=== PATIENT | male | born 1990 | race Caucasian/White ===

== ENCOUNTER 2018-12-27 17:20 | Inpatient (IN) | payer MEDICAID, OTHER ==
--- NOTE | 2018-12-27 18:14 | ED ---
Psych HPI - General Chief Complaint: Psychiatric Symptoms Stated Complaint: mental health Time Seen by Provider: 12/27/18 17:40 Source: patient, RN notes reviewed Mode of arrival: ambulatory - History of Present Illness Initial Comments: This is a 28 old male who presents with complaints of feeling depressed and suicidal. He states he isn't feeling depressed for quite a long time. No definite plan he states been having issues with his mother and he wanted her to find him. He also states she's been having some intermittent chest pains and cough he does admit to smoking is a meth user in the past. He denies any fevers chills sweats no history of asthma. He does state he was at [facility] recently had an x-ray done which apparently did not show very much. MD Complaint: suicidal ideation, feels depressed - Related Data Home Medications Medication Instructions Recorded Confirmed No Known Home Medications 12/27/18 12/27/18 Allergies Allergy/AdvReac Type Severity Reaction Status Date / Time No Known Allergies Allergy Verified 12/27/18 18:17 Review of Systems ROS Statement: Those systems with pertinent positive or pertinent negative responses have been documented in the HPI. ROS Other: All systems not noted in ROS Statement are negative. Past Medical History Past Medical History: No Reported History History of Any Multi-Drug Resistant Organisms: None Reported Past Surgical History: No Surgical Hx Reported Past Psychological History: Bipolar, Depression, Schizophrenia Smoking Status: Current every day smoker Past Alcohol Use History: None Reported Past Drug Use History: Methamphetamine General Exam - General Exam Comments Initial Comments: Is a well-developed well-nourished awake alert anxious appearing male Limitations: no limitations General appearance: alert, in no apparent distress Head exam: Present: atraumatic, normocephalic, normal inspection Eye exam: Present: normal appearance, PERRL, EOMI. Absent: scleral icterus, conjunctival injection, periorbital swelling ENT exam: Present: normal exam, mucous membranes moist Neck exam: Present: normal inspection, full ROM, other (No stridor JVD or bruits ). Absent: tenderness, meningismus, lymphadenopathy Respiratory exam: Present: decreased breath sounds. Absent: respiratory distress, wheezes, rales, rhonchi, stridor Cardiovascular Exam: Present: regular rate, normal rhythm, normal heart sounds. Absent: systolic murmur, diastolic murmur, rubs, gallop, clicks GI/Abdominal exam: Present: soft, normal bowel sounds. Absent: distended, tenderness, guarding, rebound, rigid Extremities exam: Present: normal inspection, full ROM, normal capillary refill. Absent: tenderness, pedal edema, joint swelling, calf tenderness Back exam: Present: normal inspection Neurological exam: Present: alert, oriented X3, CN II-XII intact Psychiatric exam: Present: depressed, anxious, flat affect, suicidal ideation Skin exam: Present: warm, dry, intact, normal color. Absent: rash Course Vital Signs 12/27/18 17:24 Temperature 97.9 F Pulse Rate 87 Respiratory 16 Rate Blood Pressure 131/74 O2 Sat by Pulse 100 Oximetry Medical Decision Making - Medical Decision Making The patient was evaluated by psychiatric services 5 years. He will be admitted for inpatient treatment - Lab Data Result diagrams: 12/27/18 18:18 12/27/18 18:18 Lab Results 12/27/18 12/27/18 12/27/18 Range/Units 17:40 18:18 18:18 WBC 8.0 (3.8-10.6) k/uL RBC 5.26 (4.30-5.90) m/uL Hgb 15.4 (13.0-17.5) gm/dL Hct 46.7 (39.0-53.0) % MCV 88.7 (80.0-100.0) fL MCH 29.3 (25.0-35.0) pg MCHC 33.0 (31.0-37.0) g/dL RDW 13.1 (11.5-15.5) % Plt Count 290 (150-450) k/uL Neutrophils % 65 % Lymphocytes % 23 % Monocytes % 6 % Eosinophils % 4 % Basophils % 1 % Neutrophils # 5.2 (1.3-7.7) k/uL Lymphocytes # 1.9 (1.0-4.8) k/uL Monocytes # 0.4 (0-1.0) k/uL Eosinophils # 0.3 (0-0.7) k/uL Basophils # 0.0 (0-0.2) k/uL Sodium (137-145) mmol/L Potassium (3.5-5.1) mmol/L Chloride (98-107) mmol/L Carbon Dioxide (22-30) mmol/L Anion Gap mmol/L BUN (9-20) mg/dL Creatinine (0.66-1.25) mg/dL Est GFR (CKD-EPI)AfAm (>60 ml/min/1.73 sqM) Est GFR (CKD-EPI)NonAf (>60 ml/min/1.73 sqM) Glucose (74-99) mg/dL Calcium (8.4-10.2) mg/dL Magnesium (1.6-2.3) mg/dL Total Bilirubin (0.2-1.3) mg/dL AST (17-59) U/L ALT (21-72) U/L Alkaline Phosphatase (38-126) U/L Total Creatine Kinase 241 H (55-170) U/L CK-MB (CK-2) 1.6 (0.0-2.4) ng/mL CK-MB (CK-2) Rel Index 0.7 Troponin I <0.012 (0.000-0.034) ng/mL Total Protein (6.3-8.2) g/dL Albumin (3.5-5.0) g/dL Urine Opiates Screen Not Detected (NotDetected) Ur Oxycodone Screen Not Detected (NotDetected) Urine Methadone Screen Not Detected (NotDetected) Ur Propoxyphene Screen Not Detected (NotDetected) Ur Barbiturates Screen Not Detected (NotDetected) U Tricyclic Antidepress Not Detected (NotDetected) Ur Phencyclidine Scrn Not Detected (NotDetected) Ur Amphetamines Screen Not Detected (NotDetected) U Methamphetamines Scrn Not Detected (NotDetected) U Benzodiazepines Scrn Not Detected (NotDetected) Urine Cocaine Screen Not Detected (NotDetected) U Marijuana (THC) Screen Not Detected (NotDetected) 12/27/18 Range/Units 18:18 WBC (3.8-10.6) k/uL RBC (4.30-5.90) m/uL Hgb (13.0-17.5) gm/dL Hct (39.0-53.0) % MCV (80.0-100.0) fL MCH (25.0-35.0) pg MCHC (31.0-37.0) g/dL RDW (11.5-15.5) % Plt Count (150-450) k/uL Neutrophils % % Lymphocytes % % Monocytes % % Eosinophils % % Basophils % % Neutrophils # (1.3-7.7) k/uL Lymphocytes # (1.0-4.8) k/uL Monocytes # (0-1.0) k/uL Eosinophils # (0-0.7) k/uL Basophils # (0-0.2) k/uL Sodium 140 (137-145) mmol/L Potassium 4.0 (3.5-5.1) mmol/L Chloride 105 (98-107) mmol/L Carbon Dioxide 29 (22-30) mmol/L Anion Gap 6 mmol/L BUN 15 (9-20) mg/dL Creatinine 0.82 (0.66-1.25) mg/dL Est GFR (CKD-EPI)AfAm >90 (>60 ml/min/1.73 sqM) Est GFR (CKD-EPI)NonAf >90 (>60 ml/min/1.73 sqM) Glucose 88 (74-99) mg/dL Calcium 9.0 (8.4-10.2) mg/dL Magnesium 1.9 (1.6-2.3) mg/dL Total Bilirubin 1.2 (0.2-1.3) mg/dL AST 32 (17-59) U/L ALT 29 (21-72) U/L Alkaline Phosphatase 37 L (38-126) U/L Total Creatine Kinase (55-170) U/L CK-MB (CK-2) (0.0-2.4) ng/mL CK-MB (CK-2) Rel Index Troponin I (0.000-0.034) ng/mL Total Protein 7.1 (6.3-8.2) g/dL Albumin 4.5 (3.5-5.0) g/dL Urine Opiates Screen (NotDetected) Ur Oxycodone Screen (NotDetected) Urine Methadone Screen (NotDetected) Ur Propoxyphene Screen (NotDetected) Ur Barbiturates Screen (NotDetected) U Tricyclic Antidepress (NotDetected) Ur Phencyclidine Scrn (NotDetected) Ur Amphetamines Screen (NotDetected) U Methamphetamines Scrn (NotDetected) U Benzodiazepines Scrn (NotDetected) Urine Cocaine Screen (NotDetected) U Marijuana (THC) Screen (NotDetected) - EKG Data -: EKG Interpreted by Me EKG shows normal: sinus rhythm (Sinus bradycardia rate of 51. 166 QRS duration 92 QT since QTC 390/359 that was normal-appearing EKG.) - Radiology Data Radiology results: report reviewed (I did review the imaging and report no acute findings.), image reviewed Disposition Clinical Impression: Depression, Suicidal ideation Disposition: TRANSFER TO PSYCH HOSP/UNIT Condition: Stable Referrals: None,Stated [Primary Care Provider] - 1-2 days
[2018-12-27 18:43] LABS: Amphetamine Screen,Urine Not Detected (NotDetected); Barbiturate Screen,Urine Not Detected (NotDetected); Benzodiazepines Screen,Urine Not Detected (NotDetected); Cocaine Screen,Urine Not Detected (NotDetected); Methadone Screen, Urine Not Detected (NotDetected); Opiate Screen,Urine Not Detected (NotDetected); Oxycodone Screen, Urine Not Detected (NotDetected); Phencyclidine Screen,Urine Not Detected (NotDetected); Tricyclic Antidepressant,Urine Not Detected (NotDetected); Urn Cannabinoid Scrn Not Detected (NotDetected)
[2018-12-27 18:53] LABS: Basophils % (A) 1 %; Eosinophils # (A) 0.3 k/uL (0-0.7); Eosinophils % (A) 4 %; HCT 46.7 % (39.0-53.0); HGB 15.4 gm/dL (13.0-17.5); Lymphocytes # (A) 1.9 k/uL (1.0-4.8); Lymphocytes % (A) 23 %; MCH 29.3 pg (25.0-35.0); MCV 88.7 fL (80.0-100.0); Monocytes # (A) 0.4 k/uL (0-1.0); Monocytes % (A) 6 %; Neutrophils # (A) 5.2 k/uL (1.3-7.7); Neutrophils % (A) 65 %; Platelet Count 290 k/uL (150-450); RBC 5.26 m/uL (4.30-5.90); RDW 13.1 % (11.5-15.5)
--- NOTE | 2018-12-27 18:59 | XR ---
EXAMINATION TYPE: XR chest 2V DATE OF EXAM: 12/27/2018 COMPARISON: NONE HISTORY: Cough TECHNIQUE: Frontal and lateral views of the chest are obtained. FINDINGS: Heart and mediastinum are normal. Lungs are clear. Diaphragm is normal. Bony thorax is int act. IMPRESSION: Normal chest
[2018-12-27 19:03] LABS: ALT 29 U/L (21-72); AST 32 U/L (17-59); Albumin 4.5 g/dL (3.5-5.0); Alkaline Phosphatase 37 U/L (38-126); Anion Gap 6 mmol/L; Blood Urea Nitrogen 15 mg/dL (9-20); Carbon Dioxide 29 mmol/L (22-30); Chloride 105 mmol/L (98-107); Glucose 88 mg/dL (74-99); Magnesium 1.9 mg/dL (1.6-2.3); Sodium 140 mmol/L (137-145); Total Bilirubin 1.2 mg/dL (0.2-1.3); Total Protein 7.1 g/dL (6.3-8.2)
[2018-12-27 19:10] LABS: Creatine Kinase 241 U/L (55-170)
[2018-12-27 19:23] LABS: Creatine Kinase MB 1.6 ng/mL (0.0-2.4); Troponin I <0.012 ng/mL (0.000-0.034)
[2018-12-27] MEDS ORDERED: LORazepam 2 MG/ML INJ IM STA (22:30)
[2018-12-27] MEDS ORDERED: ZIPRASIDONE 20 MG VIAL IM STA (22:30)
[2018-12-27] MEDS ORDERED: ACETAMINOPHEN TAB 325 MG TAB PO PRN (23:08)
[2018-12-27] MEDS ORDERED: ZIPRASIDONE 20 MG VIAL IM PRN (23:08)
[2018-12-27] MEDS ORDERED: MAGNESIUM HYDROXIDE 2,400 MG/10 ML CUP PO PRN (23:08)
[2018-12-27] MEDS ORDERED: MAG HYDROX/AL HYDROX/SIMETH 30 ML CUP PO PRN (23:08)
[2018-12-27] MEDS ORDERED: LORazepam 2 MG/ML INJ IM PRN (23:10)
[2018-12-28] MEDS: NICOTINE 14MG/24HR PATCH TRANSDERM SCH ×2 (04:51→09:46)
--- NOTE | 2018-12-28 11:37 | P.HP ---
Psychiatric H&P - . H&P Date: 12/28/18 History & Physical: Allergies Allergy/AdvReac Type Severity Reaction Status Date / Time No Known Allergies Allergy Verified 12/28/18 01:57 Vital Signs Temp 97.2 F L 12/28/18 00:15 Pulse 64 12/28/18 00:15 Resp 18 12/28/18 00:15 BP 119/85 12/28/18 00:15 Pulse Ox 97 12/27/18 22:45 Intake & Output 12/27/18 12/28/18 12/28/18 18:59 06:59 18:59 Weight 68.039 kg Laboratory Last Values WBC 8.0 k/uL (3.8-10.6) 12/27/18 18:18 RBC 5.26 m/uL (4.30-5.90) 12/27/18 18:18 Hgb 15.4 gm/dL (13.0-17.5) 12/27/18 18:18 Hct 46.7 % (39.0-53.0) 12/27/18 18:18 MCV 88.7 fL (80.0-100.0) 12/27/18 18:18 MCH 29.3 pg (25.0-35.0) 12/27/18 18:18 MCHC 33.0 g/dL (31.0-37.0) 12/27/18 18:18 RDW 13.1 % (11.5-15.5) 12/27/18 18:18 Plt Count 290 k/uL (150-450) 12/27/18 18:18 Neutrophils % 65 % 12/27/18 18:18 Lymphocytes % 23 % 12/27/18 18:18 Monocytes % 6 % 12/27/18 18:18 Eosinophils % 4 % 12/27/18 18:18 Basophils % 1 % 12/27/18 18:18 Neutrophils # 5.2 k/uL (1.3-7.7) 12/27/18 18:18 Lymphocytes # 1.9 k/uL (1.0-4.8) 12/27/18 18:18 Monocytes # 0.4 k/uL (0-1.0) 12/27/18 18:18 Eosinophils # 0.3 k/uL (0-0.7) 12/27/18 18:18 Basophils # 0.0 k/uL (0-0.2) 12/27/18 18:18 Sodium 140 mmol/L (137-145) 12/27/18 18:18 Potassium 4.0 mmol/L (3.5-5.1) 12/27/18 18:18 Chloride 105 mmol/L (98-107) 12/27/18 18:18 Carbon Dioxide 29 mmol/L (22-30) 12/27/18 18:18 Anion Gap 6 mmol/L 12/27/18 18:18 BUN 15 mg/dL (9-20) 12/27/18 18:18 Creatinine 0.82 mg/dL (0.66-1.25) 12/27/18 18:18 Est GFR (CKD-EPI)AfAm >90 (>60 ml/min/1.73 sqM) 12/27/18 18:18 Est GFR (CKD-EPI)NonAf >90 (>60 ml/min/1.73 sqM) 12/27/18 18:18 Glucose 88 mg/dL (74-99) 12/27/18 18:18 Calcium 9.0 mg/dL (8.4-10.2) 12/27/18 18:18 Magnesium 1.9 mg/dL (1.6-2.3) 12/27/18 18:18 Total Bilirubin 1.2 mg/dL (0.2-1.3) 12/27/18 18:18 AST 32 U/L (17-59) 12/27/18 18:18 ALT 29 U/L (21-72) 12/27/18 18:18 Alkaline Phosphatase 37 U/L (38-126) L 12/27/18 18:18 Total Creatine Kinase 241 U/L (55-170) H 12/27/18 18:18 CK-MB (CK-2) 1.6 ng/mL (0.0-2.4) 12/27/18 18:18 CK-MB (CK-2) Rel Index 0.7 12/27/18 18:18 Troponin I <0.012 ng/mL (0.000-0.034) 12/27/18 18:18 Total Protein 7.1 g/dL (6.3-8.2) 12/27/18 18:18 Albumin 4.5 g/dL (3.5-5.0) 12/27/18 18:18 Urine Opiates Screen Not Detected (NotDetected) 12/27/18 17:40 Ur Oxycodone Screen Not Detected (NotDetected) 12/27/18 17:40 Urine Methadone Screen Not Detected (NotDetected) 12/27/18 17:40 Ur Propoxyphene Screen Not Detected (NotDetected) 12/27/18 17:40 Ur Barbiturates Screen Not Detected (NotDetected) 12/27/18 17:40 U Tricyclic Antidepress Not Detected (NotDetected) 12/27/18 17:40 Ur Phencyclidine Scrn Not Detected (NotDetected) 12/27/18 17:40 Ur Amphetamines Screen Not Detected (NotDetected) 12/27/18 17:40 U Methamphetamines Scrn Not Detected (NotDetected) 12/27/18 17:40 U Benzodiazepines Scrn Not Detected (NotDetected) 12/27/18 17:40 Urine Cocaine Screen Not Detected (NotDetected) 12/27/18 17:40 U Marijuana (THC) Screen Not Detected (NotDetected) 12/27/18 17:40 Assessment and Plan Assessment: This is a 28 old male who presents with complaints of feeling depressed and suicidal. He states he isn't feeling depressed for quite a long time. No definite plan he states been having issues with his mother and he wanted her to find him. He also states she's been having some intermittent chest pains and cough he does admit to smoking is a meth user in the past. He denies any fevers chills sweats no history of asthma. He does state he was at [facility] recently had an x-ray done which apparently did not show very much. MD Complaint: suicidal ideation, feels depressed reports that he wants to commit suicide because "I'm a piece of shit." pt states that he can't control his face because of Depakote but denies taking any medications currently. pt states that he is currently living in a boarding house but doesn't like it; reports that "I would tell anyone if they go there to go with a noose around their neck." pt also states that his electoral officer told him that he couldn't live in [facility] and had to go live with his mother who pt reports not seeing for "over a decade." When asked about homicidal ideation, pt states, "Yes. My mom." When questioned further, pt states that he does not want her to , but would like to cause her emotional and psychological trauma by "blowing my brains out and splattering them across her shirt." pt reports that he can't walk down the street without feeling like everyone is staring at him. pt also reports that he has a hard time with reality, stating, "I don't know if things are really happening" and "I don't know if conversations were dreams. I have really vivid, lifelike dreams." pt states that before group home he had a problem with alcohol and that he drank while he was locked up. pt reports that last use of alcohol was and that he "drank 3 beers and got wasted." pt states that he has been sober for 6 months, "but I might have used a few months ago...or Monday." pt also reports that he "smoked some CBD last night." - Related Data Home Medications Medication Instructions Recorded Confirmed No Known Home Medications 12/27/18 12/27/18 Allergies Allergy/AdvReac Type Severity Reaction Status Date / Time No Known Allergies Allergy Verified 12/27/18 18:17 Past Medical History Past Medical History: No Reported History History of Any Multi-Drug Resistant Organisms: None Reported Past Surgical History: No Surgical Hx Reported Past Psychological History: Bipolar, Depression, Schizophrenia Smoking Status: Current every day smoker Past Alcohol Use History: None Reported Past Drug Use History: Methamphetamine Musculoskeletal Examination - Abnormal/Involuntary Movements: [none Strength: [greater than antigravity (greater than/equal to 3/5) in all extremities Muscle Tone: [no impairment Gait: [grossly normal Station: [grossly normal Mental Status Examination - this is a 28-year-old single male who is living in a boarding house has one more year parole who walked from [place] and stated that he is suicidal homicidal. He is quite delusional difficulty in focusing in a conversation and that result of the mental status examination is seen below. States that he is angry at his mother due to his childhood whereby she is to place him on medicine and taken to therapy and blames all his delusional thinking and his mom thereby wanting to harm mother and himself. General Appearance: [ disheveled, bizarre, appears stated age Speech/Language: [rapid, rambled, expressive, loud] Attitude/Behavior: [ guarded, irritable, withdrawn, indifferent Mood: [ depressed,, anxious, irritable, angry, fearful, hopelessness Affect: [ lively, incongruent, labile Orientation: [time, person, place situation] Thought Content: [wnl, denies delusions, obsessions, phobias, other] Risk Factors: [He is suicidal (ideations, plan), and/or Homicidal (ideations, plan) mother in this case Perception: [wnl, denies hallucinations (auditory, visual, tactile), other] Thought Processes: [concrete, circumstantial, tangential Concentration/Attention Span: [ impaired] [Per observation and interview with the patient] Recent Memory: [ impaired] [0 out of 3 in 3 minutes] Remote Memory: [wnl,] [past events, as related history] Intelligence: [below average [based on history, based on vocabulary, syntax, grammar, and content] Judgement: [ poor] [per patient's behavior/history of present illness] Insight: [ poor] [understanding severity of illness/history of present illness] Admitting Diagnosis: [major depressive [id number]] Patient Strengths - Housing stability: [x] Able to vocalize needs: [x] Motivation, determination, readiness for change: [x] Setting and pursuing goals, hopes, dreams, aspirations: [x] Patient Limitations: [medication, non-compliance, pathological/unsupported environment, no interests, intellectual impairment, complicated medical illness , legal issues, lack of social supports, other] Initial Plan of Care: [He is admitted on an involuntary basis with the aunt, first clinical CERT and second clinical CERT for involuntary psychiatric care on an inpatient unit 3 [facility]. Will be on 15 minute checks and usual protocol the unit. He'll be evaluated by medicine, psychiatry , nursing staff, social work, and occupational therapy. He'll be integrated [facility] milieu therapeutic environment appropriate and expected to go to groups and individual and adherent to medications and behavior is appropriate for admission psychiatric unit. He'll be placed on Prolixin and Lamictal. He'll be titrated to a therapeutic dose and resolution of symptoms. A thorough biopsychosocial evaluation is under processes at the current time and discharge planning has begun.] Estimated Length of Stay: [7 days] Initial Discharge Plan: [[place], [facility] [address] Prognosis: [good] Justification for Inpatient Hospitalization - [agitation, anxiety, depression resulting in significant loss of functioning.] [Dangerous to self, others, or property with need for controlled environment.] [Emotional or behavioral conditions and complications requiring 24 hour medical and nursing care.] [Need for special drug therapy, or other therapeutic program requiring continuous hospitalization.] [Failure of social or occupational functioning.] [Inability to meet basic life and health needs.] (1) Depression Current Visit: Yes Status: Acute Code(s): F32.9 - MAJOR DEPRESSIVE DISORDER , SINGLE EPISODE, UNSPECIFIED SNOMED Code(s): 31254235 (2) Suicidal ideation Current Visit: Yes Status: Acute Code(s): R45.851 - SUICIDAL IDEATIONS SNOMED Code(s): 9530646
--- NOTE | 2018-12-28 17:25 | P.MDCNMH ---
History of Present Illness H&P Date: 12/28/18 Chief Complaint: Medical management 20-year-old male with no PMH presents the ED for suicidal ideation and severe depression. Patient has no complaints at this time. He denies any headache, lower extremity edema, nausea, vomiting, fever, cough, chest pain, shortness of breath , palpitations, changes in urination or bowel habits. No changes in appetite or weight. Patient report smoking cigarettes for the past year. He reports occasional smoking of methamphetamines. He denies any alcohol use. He denies any medical problems. He denies any surgical history. He denies taking any medications. Review of Systems All systems: negative Past Medical History Past Medical History: No Reported History History of Any Multi-Drug Resistant Organisms: None Reported Past Surgical History: No Surgical Hx Reported Past Psychological History: Bipolar, Depression, Schizophrenia Smoking Status: Current every day smoker Past Alcohol Use History: None Reported Past Drug Use History: Methamphetamine Medications and Allergies Home Medications Medication Instructions Recorded Confirmed Type No Known Home Medications 12/27/18 12/28/18 History Allergies Allergy/AdvReac Type Severity Reaction Status Date / Time No Known Allergies Allergy Verified 12/28/18 01:57 Physical Exam Vitals: Vital Signs Temp Pulse Pulse Resp BP BP Pulse Ox 12/28/18 00:15 97.2 F L 64 18 119/85 12/27/18 22:45 56 L 16 123/74 97 12/27/18 17:24 97.9 F 87 16 131/74 100 General: [non toxic], [no distress], [appears at stated age] Derm: [warm], [dry] Head: [atraumatic], [normocephalic], [symmetric] Eyes: [EOMI], [no lid lag], [anicteric sclera] Mouth: [no lip lesion], [mucus membranes moist] Cardiovascular: [S1S2 reg], [no murmur], [positive posterior tibial pulse bilateral], Lungs: [CTA bilateral], [no rhonchi, no rales] , [no accessory muscle use] Abdominal: [soft], [ nontender to palpation], [no guarding], [no appreciable organomegaly] Ext: [no gross muscle atrophy], [no edema], [no contractures] Neuro: [ CN II-XI grossly intact], [no focal neuro deficits] Psych: [Alert], [oriented], [appropriate affect] Cranial Nerve Examination - Cranial Nerves Cranial Nerve II- Optic: Intact Cranial Nerve III- Oculomotor: Intact Cranial Nerve IV- Trochlear: Intact Cranial Nerve V- Trigeminal: Intact Cranial Nerve - Abducens: Intact Cranial Nerve VII- Facial: Intact Cranial Nerve VIII- Auditory: Intact Cranial Nerve IX- Glossopharyngeal: Intact Cranial Nerve X- Vagus: Intact Cranial Nerve XI- Accessory: Intact Cranial Nerve XII- Hypoglossal: Intact Results CBC & Chem 7: 12/27/18 18:18 12/27/18 18:18 Labs: Abnormal Lab Results - Last 24 Hours (Table) 12/27/18 12/27/18 Range/Units 18:18 18:18 Alkaline Phosphatase 37 L (38-126) U/L Total Creatine Kinase 241 H (55-170) U/L Assessment and Plan Assessment: Assessment and Plan 1. Suicidal ideation and severe depression 2. Polysubstance abuse 3. Elevated CPK 1. Management as per psychiatry 2. Ativan as needed for agitation. 3. CPK is marginally elevated. Encourage by mouth hydration. Thank you for this consult. Please call with any additional questions.
[2018-12-28] MEDS ORDERED: DIVALPROEX ER 250 MG TAB.ER.24H PO SCH (21:00)
[2018-12-28] MEDS: lamoTRIgine 25 MG TAB PO SCH (21:31)
--- NOTE | 2018-12-29 11:24 | P.PN ---
Progress Note - Text Interval history: The patient is found in group he follows me to an interview room. The psychiatric evaluation was reviewed. The patient was recently started on Lamictal and Prolixin. The patient reports being in unfamiliar with these medications and he has several questions. We addressed those questions. Upon entering the room he states that smells musty and has concern there is black mold. Concern that the keyboard of my computer has mold on it. He indicates he did not sleep at all last night staff recorded he slept 5 hours. Appetite reportedly normal. He anticipates no visits today or making any phone calls describing poor social support. Mental status exam: The patient is alert he is pleasant cooperative. He seated in his chair but demonstrates frequent movement. He describes having difficulty sitting still. He spontaneously describes thoughts of paranoia. Thought process can be disorganized at times. He reported having suicidal thoughts but feels safe here. He describes some difficulty remembering events prior to this admission. He demonstrates no verbal or physical aggressiveness. Insight and judgment impaired. Plan: The patient will be continued as current medication. He demonstrates disorganization of thought with psychosis. We will monitor for akathisia induced by Prolixin. Vital signs reviewed. He is encouraged to participate in the milieu. We will monitor him for safety.
[2018-12-29 13:24] LABS: Albumin 4.5 g/dL (3.5-5.0); Bilirubin, Delta 0.1 mg/dL (0.0-0.2); Bilirubin,Unconjugated 1.4 mg/dL (0.0-1.1); Total Bilirubin 1.5 mg/dL (0.2-1.3); Total Protein 7.4 g/dL (6.3-8.2)
[2018-12-29] MEDS: NICOTINE 14MG/24HR PATCH TRANSDERM SCH (14:30)
[2018-12-29] MEDS: lamoTRIgine 25 MG TAB PO SCH (20:49)
[2018-12-29] MEDS: LORazepam 1 MG TAB PO PRN (22:07)
[2018-12-29 23:11] LABS: Hemoglobin A1C 5.4 % (4.0-6.0)
[2018-12-30] MEDS: NICOTINE 14MG/24HR PATCH TRANSDERM SCH (07:58)
--- NOTE | 2018-12-30 13:01 | P.PN ---
Progress Note - Text Interval history: The patient is found in the hallway he follows me to an interview room. He indicates his mood is uncertain. He is worried about what will happen to him once he is discharged. He states he is just trying to focus on one day at a time. He describes having some difficulty with sleep. Appetite is stable. He has been attending groups selectively. He seems less preoccupied with delusional thoughts compared to yesterday. Mental status exam: The patient is alert he seated in his chair but demonstrates increased psychomotor activity as he often changes position. He has an expansive affect he is looking about the room. He reports feeling safe he is endorsing no hallucinations. Yesterday he spontaneously described delusional thoughts and that is not occurring today during our interaction. Thought process can be circumstantial and less often tangential. He demonstrates no verbal or physical aggressiveness he demonstrates no involuntary repetitive movements. Plan: The patient will continue on his current psychotropic medication we will continue to monitor him for safety. Vital signs reviewed. He is encouraged to fully participate in the milieu.
[2018-12-30] MEDS: LORazepam 1 MG TAB PO PRN ×2 (13:35→21:35)
[2018-12-30] MEDS: lamoTRIgine 25 MG TAB PO SCH (20:17)
[2018-12-31] MEDS: NICOTINE 14MG/24HR PATCH TRANSDERM SCH (08:34)
[2018-12-31] MEDS: LORazepam 1 MG TAB PO PRN (08:36)
--- NOTE | 2018-12-31 11:25 | P.PN ---
Subjective Progress Note Date: 12/31/18 Principal diagnosis: major depressive disorder-recurrent- This medicine is not working and I need help Objective - Vital Signs Vital signs: Vital Signs Temp 97.6 F 12/31/18 06:35 Pulse 59 L 12/31/18 06:35 Resp 16 12/31/18 06:35 BP 115/68 12/31/18 06:35 Pulse Ox 97 12/27/18 22:45 Intake & Output 12/30/18 12/31/18 12/31/18 18:59 06:59 18:59 Weight 74 kg - Labs CBC & Chem 7: 12/27/18 18:18 12/27/18 18:18 Assessment and Plan Assessment: This is a 28 old male who presents with complaints of feeling depressed and suicidal. He states he isn't feeling depressed for quite a long time. No definite plan he states been having issues with his mother and he wanted her to find him. He also states she's been having some intermittent chest pains and cough he does admit to smoking is a meth user in the past. He denies any fevers chills sweats no history of asthma. He does state he was at [facility] recently had an x-ray done which apparently did not show very much. MD Complaint: suicidal ideation, feels depressed reports that he wants to commit suicide because "I'm a piece of shit." pt states that he can't control his face because of Depakote but denies taking any medications currently. pt states that he is currently living in a boarding house but doesn't like it; reports that "I would tell anyone if they go there to go with a noose around their neck." pt also states that his placement officer told him that he couldn't live in [facility] and had to go live with his mother who pt reports not seeing for "over a decade." When asked about homicidal ideation, pt states, "Yes. My mom." When questioned further, pt states that he does not want her to , but would like to cause her emotional and psychological trauma by "blowing my brains out and splattering them across her shirt." pt reports that he can't walk down the street without feeling like everyone is staring at him. pt also reports that he has a hard time with reality, stating, "I don't know if things are really happening" and "I don't know if conversations were dreams. I have really vivid, lifelike dreams." pt states that before [facility]iary he had a problem with alcohol and that he drank while he was locked up. pt reports that last use of alcohol was and that he "drank 3 beers and got wasted." pt states that he has been sober for 6 months, "but I might have used a few months ago...or Monday." pt also reports that he "smoked some CBD last night." - Related Data Home Medications Medication Instructions Recorded Confirmed No Known Home Medications 12/27/18 12/27/18 Allergies Allergy/AdvReac Type Severity Reaction Status Date / Time No Known Allergies Allergy Verified 12/27/18 18:17 Past Medical History Past Medical History: No Reported History History of Any Multi-Drug Resistant Organisms: None Reported Past Surgical History: No Surgical Hx Reported Past Psychological History: Bipolar, Depression, Schizophrenia Smoking Status: Current every day smoker Past Alcohol Use History: None Reported Past Drug Use History: Methamphetamine Musculoskeletal Examination - Abnormal/Involuntary Movements: [none Strength: [greater than antigravity (greater than/equal to 3/5) in all extremities Muscle Tone: [no impairment Gait: [grossly normal Station: [grossly normal Mental Status Examination - this is a 28-year-old single male who is living in a boarding house has one more year parole who walked from [place] and stated that he is suicidal homicidal. He is quite delusional difficulty in focusing in a conversation and that result of the mental status examination is seen below. States that he is angry at his mother due to his childhood whereby she is to place him on medicine and taken to therapy and blames all his delusional thinking and his mom thereby wanting to harm mother and himself. General Appearance: [ disheveled, bizarre, appears stated age Speech/Language: [rapid, rambled, expressive, loud] Attitude/Behavior: [ guarded, irritable, withdrawn, indifferent Mood: [ depressed,, anxious, irritable, angry, fearful, hopelessness Affect: [ lively, incongruent, labile Orientation: [time, person, place situation] Thought Content: [wnl, denies delusions, obsessions, phobias, other] Risk Factors: [He is suicidal (ideations, plan), and/or Homicidal (ideations, plan) mother in this case Perception: [wnl, denies hallucinations (auditory, visual, tactile), other] Thought Processes: [concrete, circumstantial, tangential Concentration/Attention Span: [ impaired] [Per observation and interview with the patient] Recent Memory: [ impaired] [0 out of 3 in 3 minutes] Remote Memory: [wnl,] [past events, as related history] Intelligence: [below average [based on history, based on vocabulary, syntax, grammar, and content] Judgement: [ poor] [per patient's behavior/history of present illness] Insight: [ poor] [understanding severity of illness/history of present illness] Admitting Diagnosis: [major depressive bryhnuns-[id number]-[id number]] Patient Strengths - Housing stability: [x] Able to vocalize needs: [x] Motivation, determination, readiness for change: [x] Setting and pursuing goals, hopes, dreams, aspirations: [x] Patient Limitations: [medication, non-compliance, pathological/unsupported environment, no interests, intellectual impairment, complicated medical illness , legal issues, lack of social supports, other] Initial Plan of Care: [He is admitted on an involuntary basis with the aunt, first clinical CERT and second clinical CERT for involuntary psychiatric care on an inpatient unit 3 [facility]. Will be on 15 minute checks and usual protocol the unit. He'll be evaluated by medicine, psychiatry , nursing staff, social work, and occupational therapy. He'll be integrated murphy milieu therapeutic environment appropriate and expected to go to groups and individual and adherent to medications and behavior is appropriate for admission psychiatric unit. He'll be placed on Prolixin and Lamictal. He'll be titrated to a therapeutic dose and resolution of symptoms. A thorough biopsychosocial evaluation is under processes at the current time and discharge planning has begun. He'll be changed off of Prolixin and Lamictal and placed on Klonopin and Pristiq] Estimated Length of Stay: [5 days] Initial Discharge Plan: [[place], [facility] Prognosis: [good] Justification for Inpatient Hospitalization - [agitation, anxiety, depression resulting in significant loss of functioning.] [Dangerous to self, others, or property with need for controlled environment.] [Emotional or behavioral conditions and complications requiring 24 hour medical and nursing care.] [Need for special drug therapy, or other therapeutic program requiring continuous hospitalization.] [Failure of social or occupational functioning.] [Inability to meet basic life and health needs.] (1) Depression Current Visit: Yes Status: Acute Code(s): F32.9 - MAJOR DEPRESSIVE DISORDER , SINGLE EPISODE, UNSPECIFIED SNOMED Code(s): 80580622 (2) Suicidal ideation Current Visit: Yes Status: Acute Code(s): R45.851 - SUICIDAL IDEATIONS SNOMED Code(s): 7612035 Time with Patient: Less than 30
[2018-12-31] MEDS: clonazePAM 0.5 MG TAB PO SCH (20:42)
[2019-01-01 05:28] VITALS: RESP 14
[2019-01-01] MEDS: clonazePAM 0.5 MG TAB PO SCH ×2 (08:01→20:53)
[2019-01-01] MEDS: DESVENLAFAXINE SUCCINATE 50 MG TAB.ER.24H PO SCH (08:01)
[2019-01-01] MEDS: NICOTINE 14MG/24HR PATCH TRANSDERM SCH (08:01)
[2019-01-01] MEDS ORDERED: clonazePAM 0.5 MG TAB PO STA (11:07)
--- NOTE | 2019-01-01 11:11 | P.PN ---
Subjective Progress Note Date: 01/01/19 Principal diagnosis: major depressive disorder-recurrent- This medicine is not working and I need help Unrelieved very anxious and I tolerated the Pristiq and Klonopin is too low for violence still very very anxious. I did not get any sleep last night. I'm not suicidal homicidal and not drug-seeking I'm just very anxious. Objective - Vital Signs Vital signs: Vital Signs Temp 97.9 F 01/01/19 05:27 Pulse 54 L 01/01/19 05:27 Resp 14 01/01/19 05:27 BP 130/72 01/01/19 05:27 Pulse Ox 97 12/27/18 22:45 - Labs CBC & Chem 7: 12/27/18 18:18 12/27/18 18:18 Assessment and Plan Assessment: reports that he wants to commit suicide because "I'm a piece of shit." pt states that he can't control his face because of Depakote but denies taking any medications currently. pt states that he is currently living in a boarding house but doesn't like it; reports that "I would tell anyone if they go there to go with a noose around their neck." pt also states that his first officer and flight instructor told him that he couldn't live in [facility] and had to go live with his mother who pt reports not seeing for "over a decade." When asked about homicidal ideation, pt states, "Yes. My mom." When questioned further, pt states that he does not want her to , but would like to cause her emotional and psychological trauma by "blowing my brains out and splattering them across her shirt." pt reports that he can't walk down the street without feeling like everyone is staring at him. pt also reports that he has a hard time with reality, stating, "I don't know if things are really happening" and "I don't know if conversations were dreams. I have really vivid, lifelike dreams." pt states that before [facility] he had a problem with alcohol and that he drank while he was locked up. pt reports that last use of alcohol was Memorial Day and that he "drank 3 beers and got wasted." pt states that he has been sober for 6 months, "but I might have used a few months ago...or Monday." pt also reports that he "smoked some CBD last night." - Related Data Home Medications Medication Instructions Recorded Confirmed No Known Home Medications 12/27/18 12/27/18 Allergies Allergy/AdvReac Type Severity Reaction Status Date / Time No Known Allergies Allergy Verified 12/27/18 18:17 Past Medical History Past Medical History: No Reported History History of Any Multi-Drug Resistant Organisms: None Reported Past Surgical History: No Surgical Hx Reported Past Psychological History: Bipolar, Depression, Schizophrenia Smoking Status: Current every day smoker Past Alcohol Use History: None Reported Past Drug Use History: Methamphetamine Mental Status Examination - this is a 28-year-old single male who is living in a boarding house has one more year parole who walked from [place] and stated that he is suicidal homicidal. He is quite delusional difficulty in focusing in a conversation and that result of the mental status examination is seen below. States that he is angry at his mother due to his childhood whereby she is to place him on medicine and taken to therapy and blames all his delusional thinking and his mom thereby wanting to harm mother and himself. General Appearance: [ disheveled, bizarre, appears stated age Speech/Language: [rapid, rambled, expressive, loud] Attitude/Behavior: [ guarded, irritable, withdrawn, indifferent Mood: [ depressed,, anxious, irritable, angry, fearful, hopelessness Affect: [ lively, incongruent, labile Orientation: [time, person, place situation] Thought Content: [wnl, denies delusions, obsessions, phobias, other] Risk Factors: [He is suicidal (ideations, plan), and/or Homicidal (ideations, plan) mother in this case Perception: [wnl, denies hallucinations (auditory, visual, tactile), other] Thought Processes: [concrete, circumstantial, tangential Concentration/Attention Span: [ impaired] [Per observation and interview with the patient] Recent Memory: [ impaired] [0 out of 3 in 3 minutes] Remote Memory: [wnl,] [past events, as related history] Intelligence: [below average [based on history, based on vocabulary, syntax, grammar, and content] Judgement: [ poor] [per patient's behavior/history of present illness] Insight: [ poor] [understanding severity of illness/history of present illness] Admitting Diagnosis: [major depressive lhjaussj-hwbtkkgcl-laoivydsn versus bipolar affective disorder depressed] Patient Limitations: [medication, non-compliance, pathological/unsupported environment, no interests, intellectual impairment, complicated medical illness , legal issues, lack of social supports Initial Plan of Care: [He is admitted on an involuntary basis with the aunt, first clinical CERT and second clinical CERT for involuntary psychiatric care on an inpatient unit 3 [facility]. Will be on 15 minute checks and usual protocol the unit. He'll be evaluated by medicine, psychiatry , nursing staff, social work, and occupational therapy. He'll be integrated murphy milieu therapeutic environment appropriate and expected to go to groups and individual and adherent to medications and behavior is appropriate for admission psychiatric unit. He'll be placed on Prolixin and Lamictal. He'll be titrated to a therapeutic dose and resolution of symptoms. A thorough biopsychosocial evaluation is under processes at the current time and discharge planning has begun. He'll be changed off of Prolixin and Lamictal and placed on Klonopin 0.5 mg twice a day and Pristiq 50 mg daily] Estimated Length of Stay: [5 days] (1) Depression Current Visit: Yes Status: Acute Code(s): F32.9 - MAJOR DEPRESSIVE DISORDER , SINGLE EPISODE, UNSPECIFIED SNOMED Code(s): 19454970 (2) Suicidal ideation Current Visit: Yes Status: Acute Code(s): R45.851 - SUICIDAL IDEATIONS SNOMED Code(s): 9444366 Time with Patient: Less than 30
[2019-01-02 06:22] VITALS: BP 125/56; PULSE 64; TEMP 97.6
[2019-01-02] MEDS: NICOTINE 14MG/24HR PATCH TRANSDERM SCH (08:30)
[2019-01-02] MEDS: DESVENLAFAXINE SUCCINATE 50 MG TAB.ER.24H PO SCH (08:30)
[2019-01-02] MEDS: clonazePAM 0.5 MG TAB PO SCH (08:30)
--- NOTE | 2019-01-02 11:13 | P.DS ---
Providers Date of admission: 12/27/18 22:51 Expected date of discharge: 01/02/19 Attending physician: Houston Mack DO Consults: 12/27/18 23:08 Consult Physician Routine Consulting Provider: Jerrod Angulo Consult Reason/Comments: h&p and medical Do you want consulting provider notified?: Yes Primary care physician: Stated None - Discharge Diagnosis(es) (1) Depression This is a 28 old male who presents with complaints of feeling depressed and suicidal. He states he isn't feeling depressed for quite a long time. No definite plan he states been having issues with his mother and he wanted her to find him. He also states she's been having some intermittent chest pains and cough he does admit to smoking is a meth user in the past. He denies any fevers chills sweats no history of asthma. He does state he was at [facility] recently had an x-ray done which apparently did not show very much. MD Complaint: suicidal ideation, feels depressed reports that he wants to commit suicide because "I'm a piece of shit." pt states that he can't control his face because of Depakote but denies taking any medications currently. pt states that he is currently living in a boarding house but doesn't like it; reports that "I would tell anyone if they go there to go with a noose around their neck." pt also states that his health officer told him that he couldn't live in [facility] and had to go live with his mother who pt reports not seeing for "over a decade." When asked about homicidal ideation, pt states, "Yes. My mom." When questioned further, pt states that he does not want her to , but would like to cause her emotional and psychological trauma by "blowing my brains out and splattering them across her shirt." pt reports that he can't walk down the street without feeling like everyone is staring at him. pt also reports that he has a hard time with reality, stating, "I don't know if things are really happening" and "I don't know if conversations were dreams. I have really vivid, lifelike dreams." pt states that before long-term he had a problem with alcohol and that he drank while he was locked up. pt reports that last use of alcohol was and that he "drank 3 beers and got wasted." pt states that he has been sober for 6 months, "but I might have used a few months ago...or Monday." pt also reports that he "smoked some CBD last night." Current Visit: Yes Status: Acute Priority: Low (2) Suicidal ideation Current Visit: Yes Status: Acute Priority: Low Hospital Course: Admitting Diagnosis: [major depressive henozysn-hynknqpje-fduxmgbsk versus bipolar affective disorder depressed] Patient Limitations: [medication, non-compliance, pathological/unsupported environment, no interests, intellectual impairment, complicated medical illness , legal issues, lack of social supports Plan of Care: [He is admitted on an involuntary basis with the aunt, first clinical CERT and second clinical CERT for involuntary psychiatric care on an inpatient unit 3 [facility]. Will be on 15 minute checks and usual protocol the unit. He'll be evaluated by medicine, psychiatry , nursing staff, social work, and occupational therapy. He'll be integrated murphy milieu therapeutic environment appropriate and expected to go to groups and individual and adherent to medications and behavior is appropriate for admission psychiatric unit. He'll be placed on Prolixin and Lamictal. He'll be titrated to a therapeutic dose and resolution of symptoms. A thorough biopsychosocial evaluation is under processes at the current time and discharge planning has begun. He'll be changed off of Prolixin and Lamictal and placed on Klonopin 0.5 mg twice a day and Pristiq 50 mg daily] Mental status examination time of discharge: The patient presents alert, pleasant, and cooperative. There calmly seated without any agitated behavior. He reports that [his] mood is good. Affect is congruent and euthymic. [He] deny having any suicidal or homicidal ideation intent or plan. [He] denies any auditory or visual hallucinations. There is no evidence of any delusional thought content. [His] thought process is linear and goal-directed. [His] speech is fluent and nonpressured. [His] memory and concentration is grossly intact for the purposes of this session. Discharge Medication List Desvenlafaxine Succinate [Pristiq ER] 100 mg PO 0900 30 Days #30 tab.er.24h 05/15 [Rx] clonazePAM [KlonoPIN] 0.5 mg PO BID 10 Days #20 tab 01/02/19 [Rx] Patient Condition at Discharge: Stable Plan - Discharge Summary Discharge Rx Participant: Yes New Discharge Prescriptions: New clonazePAM [KlonoPIN] 0.5 mg PO BID 10 Days #20 tab Desvenlafaxine Succinate [Pristiq ER] 100 mg PO 0900 30 Days #30 tab.er.24h Discharge Medication List Desvenlafaxine Succinate [Pristiq ER] 100 mg PO 0900 30 Days #30 tab.er.24h 05/15 [Rx] clonazePAM [KlonoPIN] 0.5 mg PO BID 10 Days #20 tab 01/02/19 [Rx] Follow up Appointment(s)/Referral(s): None,Stated [Primary Care Provider] - 1-2 days Discharge Disposition: HOME SELF-CARE
[2019-01-02] MEDS ORDERED: DESVENLAFAXINE SUCCINATE 50 MG TAB.ER.24H PO SCH (21:00)
[2019-01-03] MEDS ORDERED: DESVENLAFAXINE SUCCINATE 50 MG TAB.ER.24H PO SCH (09:00)
== END 2019-01-02 13:15 | disposition home or self-care (01) | DRG 885 ==
LOC: EC 17:20 → 3MHU 22:51
PROVIDERS: ADMIT Psychiatry & Neurology Psychiatry; ATTEND Psychiatry & Neurology Psychiatry
DX: F33.3 Major depressive disorder, recurrent, severe with psychotic symptoms (principal); R45.851 Suicidal ideations; F17.210 Nicotine dependence, cigarettes, uncomplicated; F19.10 Other psychoactive substance abuse, uncomplicated; R05 Cough; R07.9 Chest pain, unspecified; Z91.19 Patient's noncompliance with other medical treatment and regimen
CPT/HCPCS: 36415; 71046; 80053; 80061; 80076; 80306; 82075; 82550; 82553; 83036; 83735; 84443; 84484; 85025; 96372; 99285

== ENCOUNTER 2020-02-10 | Emergency (ER) | payer OTHER | END 2020-02-10 04:27 | disposition home or self-care (01) | CPT/HCPCS: 73706; 99284; 96374; J2270; Q9967 ==

== ENCOUNTER → 2020-08-04 | Outpatient (CLI) | payer OTHER | END | disposition home or self-care (01) | LOC: LABWHC1 13:40 | PROVIDERS: ATTEND Emergency Medicine | DX: Z20.828 Contact with and (suspected) exposure to other viral communicable diseases (principal) | CPT/HCPCS: U0003; C9803 ==

== ENCOUNTER 2021-06-04 06:25 | Emergency (ER) | payer OTHER ==
[2021-06-04 06:35] VITALS: TEMP 97.6
--- NOTE | 2021-06-04 07:32 | ED ---
Recheck HPI - General Chief Complaint: Recheck/Abnormal Lab/Rx Stated Complaint: Mental health Time Seen by Provider: 06/04/21 06:56 Source: patient Mode of arrival: ambulatory Limitations: no limitations - History of Present Illness Initial Comments: Patient is a 31-year-old male with history depression, presenting to emergency Department requesting medication for some anxiety. Patient states he was recently in snf for about 4 days, he was not given his medications, he was released on Monday, 3 days ago. He started back on his medication, Pristiq. He states he has been feeling better however last night he states he felt very anxious and has not been able to sleep. He is requesting medication for anxiety and help sleep. He states he was going to just go to his PCPs office, Dr. Dawn, but stated he came to the ER instead. He denies any suicidal or homicidal thoughts. He denies any chest pain or shortness of breath, no recent fevers or chills. He has no further complaints. - Related Data Previous Rx's Medication Instructions Recorded Desvenlafaxine Succinate [Pristiq 100 mg PO 0900 30 Days #30 01/02/19 ER] tab.er.24h clonazePAM [KlonoPIN] 0.5 mg PO BID 10 Days #20 tab 01/02/19 Ibuprofen [Motrin] 600 mg PO Q8HR PRN #30 tab 02/10/20 Allergies Allergy/AdvReac Type Severity Reaction Status Date / Time No Known Allergies Allergy Verified 06/04/21 06:29 Review of Systems ROS Statement: Those systems with pertinent positive or pertinent negative responses have been documented in the HPI. ROS Other: All systems not noted in ROS Statement are negative. Past Medical History Past Medical History: No Reported History Additional Past Medical History / Comment(s): previous meth user History of Any Multi-Drug Resistant Organisms: None Reported Past Surgical History: No Surgical Hx Reported Additional Past Surgical History / Comment(s): plastic surgery on face due to dog bite. Past Psychological History: Bipolar, Depression, Schizophrenia Smoking Status: Current every day smoker Past Alcohol Use History: Rare Past Drug Use History: Marijuana General Exam - General Exam Comments Initial Comments: GENERAL: Patient is well-developed and well-nourished. Patient is nontoxic and in no acute distress. HEAD: Atraumatic, normocephalic. EYES: Pupils equal round and reactive to light, extraocular movements intact, sclera anicteric, conjunctiva are normal. Eyelids were unremarkable. LUNGS: Unlabored respirations. Breath sounds clear to auscultation bilaterally and equal. No wheezes rales or rhonchi. HEART: Regular rate and rhythm without murmurs, rubs or gallops. ABDOMEN: Soft, nontender, normoactive bowel sounds. No guarding, no rebound. No masses appreciated. : Deferred MUSCULOSKELETAL: Normal extremities with adequate strength and normal range of motion, no pitting or edema. No clubbing or cyanosis. NEUROLOGICAL: Patient is alert and oriented x 3. Normal speech, normal gait. PSYCH: Normal mood, normal affect. SKIN: Warm, Dry, normal turgor, no rashes or lesions noted. Limitations: no limitations Course Vital Signs 06/04/21 06:30 Temperature 97.6 F Pulse Rate 64 Respiratory 16 Rate Blood Pressure 154/104 O2 Sat by Pulse 100 Oximetry Medical Decision Making - Medical Decision Making Patient is a 31-year-old male here requesting medication for anxiety, unable to sleep last night. He currently takes Pristiq, he does not follow with a counselor but does see his PCP, Dr. Dawn regularly. Patient denies any suicidal or homicidal thoughts today. His exam is normal. Patient given 1 mg of Xanax for anxiety. He will follow up with his PCPs office today. Return parameters were discussed with him and he verbalized understanding. Case discussed with Dr. Noland. Disposition Clinical Impression: Anxiety Disposition: HOME SELF-CARE Condition: Stable Instructions (If sedation given, give patient instructions): Anxiety (ED) Additional Instructions: Please return to the Emergency Department if symptoms worsen or any other concerns. Please follow-up with your doctors office today as discussed. Is patient prescribed a controlled substance at d/c from ED?: No Referrals: None,Stated [Primary Care Provider] - 1-2 days Cam Dawn MD [REFERRING] - 1-2 days Time of Disposition: 07:39
[2021-06-04] MEDS ORDERED: ALPRAZolam 1 MG TAB PO STA (07:38)
[2021-06-04 07:48] VITALS: BP 135/89; PULSE 55; RESP 18
== END 2021-06-04 07:48 | disposition home or self-care (01) ==
LOC: EC 06:25
DX: F41.9 Anxiety disorder, unspecified (principal); F31.9 Bipolar disorder, unspecified; F12.90 Cannabis use, unspecified, uncomplicated; F17.200 Nicotine dependence, unspecified, uncomplicated
CPT/HCPCS: 99283

== ENCOUNTER 2021-06-21 02:35 | Emergency (ER) | payer OTHER ==
[2021-06-21 02:46] VITALS: PULSE 65; RESP 16; TEMP 97
--- NOTE | 2021-06-21 03:27 | XR ---
EXAMINATION TYPE: XR shoulder complete RT DATE OF EXAM: 06/21/2021 COMPARISON: NONE HISTORY: Fall. Injury. TECHNIQUE: 3 views FINDINGS: I see no fracture nor dislocation. Joint spaces are normal. There are no pathologic calcifi cations. IMPRESSION: Negative right shoulder exam.
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
[2021-06-21 03:53] VITALS: BP 138/74
== END 2021-06-21 03:53 | disposition home or self-care (01) ==
LOC: EC 02:35
DX: S40.011A Contusion of right shoulder, initial encounter (principal); F31.9 Bipolar disorder, unspecified; F25.9 Schizoaffective disorder, unspecified; F17.200 Nicotine dependence, unspecified, uncomplicated; F12.90 Cannabis use, unspecified, uncomplicated; V18.4XXA Pedal cycle driver injured in noncollision transport accident in traffic accident, initial encounter; Y92.410 Unspecified street and highway as the place of occurrence of the external cause
CPT/HCPCS: 99284

== ENCOUNTER 2025-02-17 23:40 | Emergency (ER) | payer OTHER ==
[2025-02-18] MEDS: LIDOCAINE/EPINEPHR/TETRACAINE 5 ML BOTTLE TOPICAL ONE (00:58)
[2025-02-18] MEDS: DIPH,PERTUS(ACELL)TETVAC-LF 0.5 ML VIAL IM ONE (01:30)
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
[2025-02-18 03:30] VITALS: BP 139/83; PULSE 52; RESP 14; TEMP 97.7
== END 2025-02-18 03:27 | disposition home or self-care (01) ==
LOC: EC 23:40
DX: S01.81XA Laceration without foreign body of other part of head, initial encounter (principal); F17.200 Nicotine dependence, unspecified, uncomplicated; Z23 Encounter for immunization; V23.49XA Other motorcycle driver injured in collision with car, pick-up truck or van in traffic accident, initial encounter; Y92.410 Unspecified street and highway as the place of occurrence of the external cause; Y93.I9 Activity, other involving external motion
CPT/HCPCS: 12013; 70450; 72125; 90471; 90715; 99284